=== PATIENT | female | born 1965 | race Caucasian/White ===

== ENCOUNTER → 2021-06-03 15:16 | Outpatient (CLI) | payer OTHER, SELFPAY ==
[2021-06-03 16:39] LABS: Ferritin 68 ng/mL (11-264)
== END ==
PROVIDERS: PCP Family Medicine; Referring Provider Family Medicine; Visit Provider Family Medicine
DX: G25.81 Restless legs syndrome (principal)
CPT/HCPCS: 36415; 82728

== ENCOUNTER 2022-08-07 09:10 | Emergency (ER) | payer OTHER, SELFPAY ==
[2022-08-07 09:25] VITALS: BP 121/77; PULSE 98; RESP 18; TEMP 36.2; O2SAT 100; BMI 20.9
[2022-08-07] MEDS: diazePAM 5 MG TABLET PO (09:39)
[2022-08-07] MEDS: KETOROLAC 30 MG/ML VIAL IM (09:39)
--- NOTE | 2022-08-07 11:28 | ED.BACK ---
HPI - Back Pain/Injury <Hollie Ryan PA-C - Last Filed: 08/07/22 13:37> General Chief Complaint: Back Pain/Injury Stated Complaint: back pain T-3 Time Seen by Provider: 08/07/22 11:25 Source: patient History of Present Illness HPI Narrative: This is a 56-year-old woman with history of chronic back spasms who presents with concern for neck and back spasms for the last 3 days that have been uncontrolled with her Tylenol, ibuprofen, ice and Valium regimen. Patient states there was no inciting incident, they simply began she did state they started low in her neck which is atypical usually they start in her mid back it did then progressed to her mid back. She states that the pain in her neck radiates into her shoulder and down into her arm and the pain in her mid back radiates around her ribs towards the front, it is a electric type zinging pain and it is intermittent and only occurs with movement. She states she also has constant tightness in her muscles in this area which is common for her particularly when she is having a flare-up of symptoms. She states she has had previous MRIs and previous evaluation for MS. She has not previously tried steroid medication. She has a primary care provider and has seen a manipulative therapy specialist. She denies headache, vision change, coordination difficulty, new one-sided weakness, numbness or tingling in her feet, groin or hands, urgency frequency dysuria or any other symptoms. Related Data Previous Rx's Medication Instructions Recorded hydrocodone 5 mg-acetaminophen 325 1 tab PO Q8H PRN pain 3 days #6 08/07/22 mg tablet tabs ondansetron 4 mg disintegrating 4 mg PO Q8H PRN nausea and 08/07/22 tablet vomiting #10 tabs prednisone 20 mg tablet 40 mg PO DAILY 5 days #10 tabs 08/07/22 Allergies Allergy/AdvReac Type Severity Reaction Status Date / Time latex AdvReac Mild Verified 08/07/22 09:30 neomycin AdvReac Mild Verified 08/07/22 09:30 Sulfa (Sulfonamide AdvReac Mild Verified 08/07/22 09:30 Antibiotics) Review of Systems <Hollie Ryan PA-C - Last Filed: 08/07/22 13:37> Review of Systems Narrative: See HPI Patient History <Hollie Ryan PA-C - Last Filed: 08/07/22 13:37> Social History Smoking Status: Never smoker Smoking Status: Never smoker alcohol intake frequency: 0-2 drinks per day Substance Use Type: marijuana Exam <Hollie Ryan PA-C - Last Filed: 08/07/22 13:37> Narrative Exam Narrative: GENERAL: 56 year old patient appears stated age. Well-developed patient, in mild distress. HEAD: Atraumatic. Normocephalic. EYES: Pupils equal round and reactive. Extraocular motions intact. No scleral icterus. No injection or drainage. ENT: Nose without bleeding, purulent drainage. Airway patent. NECK: Trachea midline. Non tender CARDIOVASCULAR: Regular rate and rhythm without murmurs, gallops, or rubs. RESPIRATORY: Clear to auscultation. Breath sounds equal bilaterally. No wheezes, rales, or rhonchi. GASTROINTESTINAL: Abdomen soft, non-tender, nondistended, no CVA tenderness. 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 No edema or joint tenderness. BACK: There is tenderness of the paraspinal muscles of the mid cervical and midthoracic spine. Muscles are tight bilaterally in the thoracic spine. Otherwise Nontender without deformity or crepitance. No flank tenderness. NEURO: AOx3. SKIN: No rash or erythema of visible areas Initial Vital Signs Initial Vital Signs: Vital Signs Temperature 97.2 F L 08/07/22 09:25 Pulse Rate 98 H 08/07/22 09:25 Respiratory Rate 18 08/07/22 09:25 Blood Pressure 121/77 08/07/22 09:25 Pulse Oximetry 100 08/07/22 09:25 Oxygen Delivery Method Room Air 08/07/22 09:25 <Danielle Mcmillan DO - Last Filed: 08/07/22 19:13> Initial Vital Signs Initial Vital Signs: Vital Signs Temperature 97.2 F L 08/07/22 09:25 Pulse Rate 98 H 08/07/22 09:25 Respiratory Rate 18 08/07/22 09:25 Blood Pressure 121/77 08/07/22 09:25 Pulse Oximetry 100 08/07/22 09:25 Oxygen Delivery Method Room Air 08/07/22 09:25 Course <Hollie Ryan PA-C - Last Filed: 08/07/22 13:37> Orders Ordered: Discontinued Medications Diazepam (Diazepam 5 Mg Tablet) 5 mg PO NOW ONE Stop: 08/07/22 09:35 Last Admin: 08/07/22 09:39 Dose: 5 mg Documented By: RB Ketorolac Tromethamine (Ketorolac 30 Mg/Ml Vial) 30 mg IM NOW ONE Stop: 08/07/22 09:35 Last Admin: 08/07/22 09:39 Dose: 30 mg Documented By: RB Prednisone (Prednisone 20 Mg Tablet) 40 mg PO NOW ONE Stop: 08/07/22 11:47 Last Admin: 08/07/22 12:01 Dose: 40 mg Documented By: KLS Vital Signs Vital signs: Vital Signs - 8 hr 08/07/22 12:20 Pulse Rate 78 Respiratory Rate 16 Blood Pressure 123/78 <Danielle Mcmillan DO - Last Filed: 08/07/22 19:13> Orders Ordered: Discontinued Medications Diazepam (Diazepam 5 Mg Tablet) 5 mg PO NOW ONE Stop: 08/07/22 09:35 Last Admin: 08/07/22 09:39 Dose: 5 mg Documented By: RB Ketorolac Tromethamine (Ketorolac 30 Mg/Ml Vial) 30 mg IM NOW ONE Stop: 08/07/22 09:35 Last Admin: 08/07/22 09:39 Dose: 30 mg Documented By: RB Prednisone (Prednisone 20 Mg Tablet) 40 mg PO NOW ONE Stop: 08/07/22 11:47 Last Admin: 08/07/22 12:01 Dose: 40 mg Documented By: KLS Vital Signs Vital signs: Vital Signs - 8 hr 08/07/22 12:20 Pulse Rate 78 Respiratory Rate 16 Blood Pressure 123/78 MDM - Back Pain/Injury <Hollie Ryan PA-C - Last Filed: 08/07/22 13:37> Differential Diagnosis Differential diagnosis: Likely thoracic back pain and other (Nerve compression, radicular pain, muscle spasm) Medical Records Attestation: I reviewed the patient's medical records. Treatment and disposition Shared decision making:: Shared decision-making was used in determining the patient's plan of care in the emergency department and plan for outpatient follow-up. MDM Narrative Medical decision making narrative: This is a 56-year-old woman who presents with concern for muscle spasming in her mid back and neck, with chronic problems with muscle spasming. This has been going on for 3 days and was unrelieved at home with her typical home treatments. Exam today is consistent with muscle spasm, suspect possibly pinched nerve and cervical radiculopathy affecting her right shoulder. Patient was treated today with Toradol as well as Valium with improvement in her symptoms, she also received initial dose of prednisone. She did have improvement overall prior to discharge. Discussed options with the patient and she has never tried steroid medication previously for these flare-ups, do prescribe a course of prednisone for her encourage her to continue with her regular home treatments and follow up closely with primary care, consider seeing ortho spine for further evaluation. Imaging was not obtained today as this is a chronic problem for the patient. She has no red flag symptoms and MRI is not warranted from the ER today. Return precautions provided, follow-up plan discussed, all questions answered. Discharge Plan Departure Patient Disposition: Home Clinical Impression: Muscle spasm of back, Muscle spasms of neck, Radiculopathy affecting upper extremity Instructions: DI for Back Spasm Activity Restrictions/Additional Instructions: *You have been diagnosed with [muscle spasms, radicular pain] *What to do: *Please continue to take your regular medications as directed. [3 ] New medication prescriptions sent to your pharmacy: [Hydrocodone, Zofran, prednisone] [ ] New medication written as a paper prescription [ ] No new medications given *Please follow up with your primary care provider in 2-3 days, call for an appointment. Let them know you were seen in the Emergency Department and that we ask that you be seen in follow up. We will electronically transmit a record of today's note if your PCP is in our system. I am hopeful that the medications today particularly the steroid medication may be helpful in relieving her symptoms, I would encourage you to follow-up with an orthopedic/manipulative therapy specialist particularly if you are having recurrent symptoms. I reccomend youtake ibuprofen with food. *If you do not have a primary care provider please contact the [facility] Resource line at [phone]. They will ask some questions about your medical history and help get you set up with a doctor in the community. *Return to Emergency Department if you should have any new, worsening or concerning symptoms, such as [fever greater than 101 F, shaking chills, worsening pain, persistent vomiting or other bothersome symptoms] Prescriptions: New ondansetron 4 mg tablet,disintegrating 4 mg PO Q8H PRN (Reason: nausea and vomiting) Qty: 10 0RF hydrocodone-acetaminophen 5-325 mg tablet 1 tab PO Q8H PRN (Reason: pain) 3 Days Qty: 6 0RF prednisone 20 mg tablet 40 mg PO DAILY 5 Days Qty: 10 0RF Referrals: Wendi Guevara MD [Primary Care Provider] - Stand Alone Forms: Patient Portal/API <Danielle Mcmillan DO - Last Filed: 08/07/22 19:13> Cosign ED Attending Luzature Attestation: I was immediately available in the department for consultation.
[2022-08-07] MEDS: predniSONE 20 MG TABLET 40 MG PO (12:01)
[2022-08-07 12:20] VITALS: BP 123/78; PULSE 78; RESP 16
== END 2022-08-07 12:22 | disposition home or self-care (01) ==
PROVIDERS: Emergency Provider Student in an Organized Health Care Education/Training Program; PCP Family Medicine
DX: M62.830 Muscle spasm of back (principal); M54.12 Radiculopathy, cervical region
CPT/HCPCS: 96372; 99283; J1885

== ENCOUNTER → 2023-08-20 08:27 | Outpatient (CLI) | payer OTHER, SELFPAY ==
[2023-08-20 09:31] LABS: Add Manual Diff / Slide Review NO; Basophils Absolute Auto 0 /uL (0-100); Eosinophils Absolute Auto 200 /uL (0-450); Eosinophils Percent Auto 3.7 % (2-4); Hematocrit 40.9 % (36-46); Hemoglobin 13.6 g/dL (12.0-16.0); Lymphocytes Absolute Auto 2000 /uL (1100-4500); Lymphocytes Percent Auto 45.9 % (25-40); Mean Corpuscular HGB Conc 33.3 % (30-36); Mean Corpuscular Hemoglobin 29.9 PG (26-34); Mean Corpuscular Volume 89.8 fL (80-100); Monocytes Absolute Auto 300 /uL (0-900); Monocytes Percent Auto 6.4 % (3-14); Neutrophils Absolute Auto 1800 /uL (1500-7000); Platelet Count 265 X10^3/uL (150-400); Red Blood Cell Count 4.55 X10^6/uL (4.0-5.2); Red Cell Distribution Width 12.9 % (11.6-14.8); White Blood Cell Count 4.3 X10^3/uL (4.5-11.0)
[2023-08-20 09:50] LABS: Alanine Aminotransferase 17 IU/L (<35); Albumin 4.6 g/dL (3.5-5.0); Alkaline Phosphatase 74 U/L (38-126); Aspartate Aminotransferase 24 IU/L (14-36); BUN Creatinine Ratio 20.3 (6-22); Bilirubin Total 0.8 mg/dL (0.2-1.3); Blood Urea Nitrogen 15 mg/dL (7-17); Calcium 9.3 mg/dL (8.4-10.2); Carbon Dioxide 29 mmol/L (22-32); Chloride 105 mmol/L (98-107); Cholesterol 206 mg/dL (140-199); Estimated Glomerular Filt Rate > 60 mL/min (>60); Globulin 2.3 g/dL (1.7-4.1); Glucose 88 mg/dL (70-100); HDL Cholesterol 102 mg/dL (40-60); HEMOLYSIS < 15 (0-50); LDL Cholesterol Calculated 93 mg/dL (<100); Potassium 4.7 mmol/L (3.4-5.1); Sodium 137 mmol/L (137-145); Total Protein 6.9 g/dL (6.3-8.2); Triglycerides 56 mg/dL (35-150)
== END ==
PROVIDERS: PCP Family Medicine; Referring Provider Family Medicine; Visit Provider Family Medicine
DX: Z78.0 Asymptomatic menopausal state (principal); H04.123 Dry eye syndrome of bilateral lacrimal glands; Z13.6 Encounter for screening for cardiovascular disorders
CPT/HCPCS: 36415; 80053; 80061; 85025; 86235

== ENCOUNTER → 2023-09-14 13:54 | Outpatient (CLI) | payer OTHER, SELFPAY ==
[2023-09-14 14:57] LABS: Add Manual Diff / Slide Review NO; Basophils Absolute Auto 100 /uL (0-100); Basophils Percent Auto 0.9 % (0-2); Eosinophils Absolute Auto 200 /uL (0-450); Eosinophils Percent Auto 2.7 % (2-4); Hematocrit 39.1 % (36-46); Lymphocytes Absolute Auto 2000 /uL (1100-4500); Lymphocytes Percent Auto 29.2 % (25-40); Mean Corpuscular HGB Conc 33.2 % (30-36); Mean Corpuscular Volume 90.3 fL (80-100); Monocytes Absolute Auto 400 /uL (0-900); Monocytes Percent Auto 5.9 % (3-14); Neutrophils Absolute Auto 4300 /uL (1500-7000); Neutrophils Percent Auto 61.3 % (50-75); Platelet Count 273 X10^3/uL (150-400); Red Blood Cell Count 4.33 X10^6/uL (4.0-5.2); Red Cell Distribution Width 13.4 % (11.6-14.8)
== END ==
PROVIDERS: PCP Family Medicine; Referring Provider Family Medicine; Visit Provider Family Medicine
DX: D72.819 Decreased white blood cell count, unspecified (principal)
CPT/HCPCS: 36415; 85025

== ENCOUNTER → 2024-08-03 15:05 | Outpatient (CLI) | payer OTHER, SELFPAY ==
--- NOTE | 2024-08-03 15:07 | DI.MG.S_ITS ---
MM screening mammo BI: 08/03/2024. BI-RADS: 1 CLINICAL: 58-year old female for bilateral screening mammogram. Tyrer-Cuzick lifetime risk of 6.8%. No personal or first-degree family history of breast cancer. PRIOR EXAMS: 08/08/2021. MAMMOGRAPHY TECHNIQUE: 2D and 3D (tomosynthesis) digital mammographic views obtained, with additional images as needed for full coverage. Current study was also evaluated with a Computer Aided Detection (CAD) system. DENSITY C. The breasts are heterogeneously dense, which may obscure small masses. MAMMOGRAPHY FINDINGS Bilateral: No suspicious mass, asymmetry, microcalcification, or other abnormality seen. IMPRESSION: * No evidence of malignancy. RECOMMENDATIONS Bilateral * Annual screening mammography. OVERALL ASSESSMENT CATEGORY BI-RADS-1: Negative. The [employer] recommends annual screening mammography beginning at age 40 for women with average risk of breast cancer. ELECTRONICALLY SIGNED: Drew Patton M.D. on 08/04/2024 at 07:45:32 AM PT Interpreting Station ID: [id number]
== END ==
PROVIDERS: PCP Family Medicine; Referring Provider Family Medicine; Visit Provider Family Medicine
DX: Z12.31 Encounter for screening mammogram for malignant neoplasm of breast (principal); R92.333 Mammographic heterogeneous density, bilateral breasts
CPT/HCPCS: 77063; 77067

== ENCOUNTER → 2025-01-03 08:16 | Outpatient (CLI) | payer OTHER, SELFPAY ==
[2025-01-03 09:01] LABS: Add Manual Diff / Slide Review NO; Hematocrit 40.8 % (36-46); Hemoglobin 13.5 g/dL (12.0-16.0); Lymphocytes Absolute Auto 2300 /uL (1100-4500); Mean Corpuscular HGB Conc 33.1 % (30-36); Mean Corpuscular Hemoglobin 29.4 PG (26-34); Mean Corpuscular Volume 88.8 fL (80-100); Platelet Count 267 X10^3/uL (150-400)
[2025-01-03 09:19] LABS: Alanine Aminotransferase 14 IU/L (<35); Albumin 4.5 g/dL (3.5-5.0); Albumin Globulin Ratio 1.8 (1.0-2.8); Alkaline Phosphatase 80 U/L (38-126); Blood Urea Nitrogen 15 mg/dL (7-17); Calcium 9.3 mg/dL (8.4-10.2); Carbon Dioxide 26 mmol/L (22-32); Chloride 105 mmol/L (98-107); Cholesterol 206 mg/dL (140-199); Estimated Glomerular Filt Rate > 60 mL/min (>60); Globulin 2.5 g/dL (1.7-4.1); Glucose 94 mg/dL (70-99); HDL Cholesterol 101 mg/dL (40-60); HEMOLYSIS < 15 (0-50); Potassium 4.8 mmol/L (3.4-5.1); Sodium 137 mmol/L (137-145); Total Protein 7.0 g/dL (6.3-8.2); Triglycerides 59 mg/dL (35-150)
== END ==
PROVIDERS: PCP Family Medicine; Referring Provider Family Medicine; Visit Provider Family Medicine
DX: T78.40XD Allergy, unspecified, subsequent encounter (principal); Z80.8 Family history of malignant neoplasm of other organs or systems; Z82.62 Family history of osteoporosis; L57.8 Other skin changes due to chronic exposure to nonionizing radiation
CPT/HCPCS: 36415; 80053; 80061; 85025

== ENCOUNTER → 2025-01-08 10:47 | Outpatient (CLI) | payer OTHER, SELFPAY ==
--- NOTE | 2025-01-08 10:48 | DI.RAD.S_ITS ---
PROCEDURE: XR DEXA AXIAL SKELETON INDICATIONS: family HX of osteoporosis COMPARISON: None. FINDINGS: Lumbar Spine: Bone mineral density 0.750 g/cm2, T score -2.7. Left Femoral Neck: Bone mineral density 0.594 g/cm2, T score -2.3. Left Hip: Bone mineral density 0.742 g/cm2, T score -1.6. Fracture Risk Calculation (when applicable): 10-year fracture risk of a major osteoporotic fracture 8.8 percent (15 percent with history of prior fracture) and of a hip fracture 1.4 percent (2.6 percent with history of prior fracture). (T score greater or equal to -1.0 to: NORMAL) (T score from -1.1 to -2.4: OSTEOPENIA) (T score less than or equal to -2.5: OSTEOPOROSIS) IMPRESSION: Osteoporosis Follow-up guidelines as follows: Osteoporosis: Consider a repeat DEXA and Vertebral Fracture Assessment (VFA) exam in 2 years or sooner if medically necessary, to reassess this patient's status. Osteopenia: Consider a repeat DEXA in 2-3 years to reassess this patient's status, or if there is a new clinical indication. Normal: Consider a repeat DEXA in 5 years or sooner, or if there is a new clinical indication. All treatment decisions require clinical judgment and consideration of individual patient factors, including patient preferences, comorbidities, previous drug use, risk factors not captured in the FRAX model (e.g., frailty, falls, vitamin D deficiency, increased bone turnover, interval significant decline in bone density ) and possible under- or over-estimation of fracture risk by FRAX. In addition, the NOF Guide recommends that FDA-approved medical therapies be considered in postmenopausal women and men age >= 50 years with a: * Hip or vertebral (clinical or morphometric) fracture * T-score of <=-2.5 at the spine or hip * Ten-year fracture probability by FRAX of >= 3% for hip fracture or >=20% for major osteoporotic fracture. Approved by: Amberly Florence M.D.,Ph.D. on 01/09/2025 at 23:58
== END ==
LOC: RAD 10:48
PROVIDERS: PCP Family Medicine; Referring Provider Family Medicine; Visit Provider Family Medicine
DX: M81.0 Age-related osteoporosis without current pathological fracture (principal); Z82.62 Family history of osteoporosis
CPT/HCPCS: 77080

== ENCOUNTER → 2025-01-11 12:09 | Outpatient (CLI) | payer OTHER, SELFPAY ==
[2025-01-11 13:39] LABS: TSH w/ Reflex to FT4 1.27 uIU/mL (0.47-4.68)
[2025-01-11 15:43] LABS: Vitamin D 25 Hydroxy (D3) 26.0 ng/mL (30.0-100.0)
== END ==
PROVIDERS: PCP Family Medicine; Referring Provider Family Medicine; Visit Provider Family Medicine
DX: M79.643 Pain in unspecified hand (principal); M25.50 Pain in unspecified joint; Z83.49 Family history of other endocrine, nutritional and metabolic diseases; M81.0 Age-related osteoporosis without current pathological fracture
CPT/HCPCS: 36415; 82306; 84443; 86200; 86430

== ENCOUNTER → 2025-03-08 10:19 | Outpatient (CLI) | payer OTHER, SELFPAY | PROVIDERS: PCP Family Medicine; Visit Provider Registered Nurse | DX: R39.15 Urgency of urination (principal) | CPT/HCPCS: 87077; 87086 ==

== ENCOUNTER → 2025-03-16 10:53 | Outpatient (CLI) | payer OTHER, SELFPAY | PROVIDERS: PCP Family Medicine; Visit Provider Family Medicine | DX: N39.0 Urinary tract infection, site not specified (principal) | CPT/HCPCS: 87086 ==